=== PATIENT | male | born 1990 | race African-American/Black ===

== ENCOUNTER 2016-12-24 05:50 | Emergency (ER) | payer OTHER ==
[2016-12-24] MEDS ORDERED: LABETALOL IV ONE (06:43)
[2016-12-24] MEDS ORDERED: VANCOMYCIN 1 GM/NS 250 ML IV ONE (07:11)
[2016-12-24] MEDS ORDERED: NS IV SCH (07:15)
[2016-12-24] MEDS ORDERED: SOLU CORTEF IV SCH (07:15)
[2016-12-24] MEDS ORDERED: TAZIDIME 2 GM in NS 100 ML IV ONE (07:30)
[2016-12-24 09:47] VITALS: BP 156/107
--- NOTE | 2016-12-24 10:25 | ED EKG INTERP ---
EKG Interpretation - EKG Time of EKG reading by physician:: 06:03 EKG Read and Signed by:: Trevor Obando EKG Interpretation (*Must complete 3 of following elements*): Normal Rate: 87 Rhythm: NSR Attestation - Scribe Verification/Attestation Scribe:: Suzy Freedamn Acting as Scribe for:: Trevor Obando Scribe documention review:: This chart was documented by a scribe and accurately reflects the service the provider performed and the decisions made by the provider.
--- NOTE | 2016-12-24 11:42 | PROVIDER DOCUMENTATION ---
HPI-General Adult - General Source: patient - History of Present Illness -Gen Adult Nature of Presenting Problems: Pt is a 26 yom who came to the ED with a cc of a leaky peritoneal tube. Pt reports he was at dialysis and his peritoneal tube was leaking and he clamped it off and came to the ED. Location of Pain/Injury: reports: abdomen (peritoneal tube) Pain Radiation: reports: no radiation Quality of Pain: reports: none Onset/Duration: reports: unsure Timing: reports: still present Context/Activities at Onset: reports: none Modifying Factors: improves with: nothing Associated Symptoms: reports: denies symptoms Similar Symptoms Previously?: No Recently seen or treated by another doctor?: No - General Chief Complaint: General Adult Stated Complaint: dialysis port not working and leaking. Time Seen by Provider: 12/24/16 06:10 Allergies/Adverse Reactions: Patient Allergies Allergy/AdvReac Type Severity Reaction Status Date / Time povidone-iodine Allergy Mild RASH Verified 12/24/16 06:49 [From Betadine] latex Allergy Unknown Unknown Verified 12/24/16 06:49 phenylephrine Allergy Unknown Unknown Verified 12/24/16 06:49 naldycon Allergy Intermediate sleep Uncoded 12/24/16 06:49 Home Medications: Home Medication List Medication Instructions Recorded Confirmed Last Taken Type Labetalol HCl 200 mg PO BID 12/27/13 11/29/16 11/29/16 08:00 History Magnesium Oxide 400 mg PO DAILY 12/27/13 11/29/16 11/29/16 08:00 History Calcium Acetate 4 tab PO TID CC 06/03/14 11/29/16 11/29/16 08:00 History Acetaminophen [Tylenol] 325 mg PO PRN PRN 11/21/14 11/29/16 03/09/15 09:30 History Gentamicin 0.3% Oph Oint 1 each TOP DIRECTED 11/21/14 11/29/16 02/23/16 03: 30 History Melatonin/Pyridoxine HCl (B6) 5 mg SL QHS 11/21/14 11/29/16 11/28/16 21:00 History [Melatonin 5 mg Tablet] Sorbitol Solution [Sorbitol] 30 ml PO BID PRN 11/21/14 11/29/16 Unknown History Calcitriol 0.5 mcg PO DAILY 05/03/15 11/29/16 11/29/16 08:00 History Promethazine [Phenergan] 25 mg PO Q6H PRN PRN #20 tablet 05/03/15 11/29/16 Unknown Rx Amlodipine Besylate [Norvasc] 10 mg PO DAILY #30 tablet 09/02/15 11/29/16 21:00 Rx Clonazepam [Klonopin] 0.5 mg PO BID PRN PRN 09/02/15 11/29/16 11/29/16 08:00 History Omeprazole [Prilosec] 40 mg PO DAILY 09/02/15 11/29/16 11/29/16 08:00 History Ondansetron [Zofran Odt] 4 mg PO Q4-6H PRN PRN #12 09/29/15 11/29/16 Unknown Rx tab.rapdis Darbepoetin Luis Daniel in [place]ysorbat 60 mcg IJ DIRECTED PRN PRN 02/21/16 11/29/16 11/22/16 History [Aranesp] Guanfacine [Tenex] 1 mg PO QAM 02/21/16 11/29/16 11/29/16 08:00 History Mirtazapine [Remeron] 45 mg PO QHS 02/21/16 11/29/16 11/28/16 21:00 History Hydrocodone/Acetaminophen [[place] 1 each PO Q4H PRN #15 tablet 02/23/16 11/29/16 Unknown Rx 7.5-325 Tablet] Folic Acid/Vitamin B Comp W-C 1 each PO DAILY 11/28/16 11/29/16 11/28/16 21:00 History [Nephrocaps] Polyethylene Glycol 3350 [Miralax] 17 gm PO DAILY 11/28/16 11/29/16 Unknown History Hydrocodone/APAP 10 mg/325 mg 1 each PO Q4H PRN PRN #10 tablet 11/29/16 Unknown Rx [[place]-10] Review of Systems - Adult - REVIEW OF SYSTEMS - ADULT Constitutional: denies: fever, night sweats Eyes: reports: no symptoms reported Ears, Nose, Mouth & Throat: denies: sinus problem, mouth/dental pain Cardiovascular: reports: no symptoms reported Respiratory: denies: hemoptysis, shortness of breath Gastrointestinal: reports: other (peritoneal tube leaking). denies: diarrhea, nausea Genitourinary: reports: no symptoms reported Musculoskeletal: reports: no symptoms reported Integumentary: reports: no symptoms reported Neurological: reports: no symptoms reported Psychiatric: reports: no symptoms reported Endocrine: reports: no symptoms reported Hematologic/Lymphatic: reports: no symptoms reported Allergic/Immunologic: reports: no symptoms reported All Other Systems: Reviewed and Negative Past History - Adult - PAST MEDICAL HISTORY-ADULT Review of Records: reports: Old Records Reviewed, Nursing Assessment Review Major Childhood Illnesses: reports: denies history Cardiovascular: reports: HTN Respiratory: reports: denies history Gastrointestinal: reports: GERD Obstetrical/Gynecological: reports: denies history Genitourinary: reports: dialysis (peritoneal), ESRD, kidney disease, other ( right kidney transplant, 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) Musculoskeletal: reports: denies history Neurological: reports: denies history Endocrine/Immune: reports: denies history Other Conditions: reports: denies history - PRIOR SURGERIES/PROCEDURES Surgical/Procedure History: reports: hernia repair, other (R kidney transplant/ vas cath/kidney stent/peritoneal port) - IMMUNIZATION STATUS Childhood Immunizations: See Nurse Assessment Flu Vaccine: See Nurse Assessment - FAMILY HISTORY Family History: reviewed, not pertinent Physical Exam-General - PHYSICAL EXAM-ADULT Initial Vital Signs Reviewed: Yes - CONSTITUTIONAL General Appearance: alert, no apparent distress - EYES Eyes: PERRL/EOMI, pink conjunctivae, fundi clear, no AV nicking - HEAD, EARS, NOSE, MOUTH & THROAT HENMT: normocephalic/atraumatic, moist mucous membranes - NECK Neck: non-tender - RESPIRATORY Respiratory: chest non-tender - CARDIOVASCULAR Cardiovascular: normal peripheral pulses, regular rate, rhythm, no edema, no gallop, no JVD, no murmur - GASTROINTESTINAL (ABDOMEN) Abdominal Exam: normal bowel sounds, other (peritoneal tube leaking) - LYMPHATIC Lymphatic: no adenopathy - MUSCULOSKELETAL Back Exam: normal inspection, no CVA tenderness, no vertebral tenderness Extremity: normal range of motion - SKIN Integumentary: normal color, normal turgor, warm/dry - NEUROLOGIC Neurologic: grossly normal - PSYCHIATRIC Psych/Mental Status: normal mood/affect, normal thought content, normal thought process, oriented x 3 Progress - PLAN OF CARE/RESULTS Progress/Plan/Lab Results: Vital Signs - 24 hr 12/24/16 12/24/16 12/24/16 05:55 07:15 08:30 Temperature 97.4 F L Pulse Rate 98 H 91 H 83 Respiratory 18 13 10 L Rate Blood Pressure 178/124 176/108 171/94 O2 Sat by Pulse 100 99 95 Oximetry 12/24/16 12/24/16 12/24/16 09:00 09:29 09:46 Temperature Pulse Rate 68 75 79 Respiratory 19 16 15 Rate Blood Pressure 137/101 137/101 156/107 O2 Sat by Pulse 99 99 100 Oximetry Orders Category Date Time Status CefTAZIDIME [Tazidime] 2 gm Med 12/24/16 07:30 Discontinued 0.9% Sodium Chloride Inj [Ns] 100 ml IV NOW Hydrocortisone Sod Succinate [Solu-Cortef] 2,000 mg Med 12/24/16 07:15 Discontinued 0.9% Sodium Chloride Inj [Ns] 50 ml IV Q6H Labetalol Med 12/24/16 06:43 Discontinued 20 mg IV NOW ONE Vancomycin 1 gm/Ns 250 ml Med 12/24/16 07:11 Discontinued IV NOW - CONSULTS/PCP/HOSPITALIST Notification #1 *Consult/PCP/Hospitalist*: Dr. 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 Alvarez Departure - Departure Time of Disposition Order: 11:49 Certified Medical Emergency: Emergent - Departure DIAGNOSIS: Malfunction peritoneal dialysis catheter Disposition: HOME 01 Condition: Stable Additional Instructions: Go to Dr. Alvarez's office to meet Avani for evaluation and repair of peritoneal dialysis tube as instructed by Dr Alvarez ED Follow Up Instructions: You have been treated by a care provider in the Emergency Department. These instructions are being provided to you so you can have an understanding of how to care for yourself upon discharge. Upon discharge from the Emergency Department, you are responsible for making arrangements for follow-up care by a physician of your choice. Take all prescribed medications as directed. Return to the Emergency Department immediately for any new or worsening symptoms. You may call the Physician Referral phone number at [phone] to obtain a list of Physicians who are taking new patients. Referrals: Shadi Brewer MD [Primary Care Provider] - Instructions: Hemodialysis, [id number] Attestation - Scribe Verification/Attestation Scribe:: Suzy Freedman Acting as Scribe for:: Trevor Obando Scribe documention review:: This chart was documented by a scribe and accurately reflects the service the provider performed and the decisions made by the provider. Physician Attestation
--- NOTE | 2016-12-25 06:10 | EKG Report ---
Test Performed on : 12/24/2016 06:03:50 AM Test Reason : No Order in [employer] Blood Pressure : / mmHG Vent. Rate : 087 BPM Atrial Rate : 087 BPM P-R Int : 142 ms QRS Dur : 090 ms QT Int : 390 ms P-R-T Axes : 048 038 044 degrees QTc Int : 469 ms Normal sinus rhythm. Normal ECG When compared with ECG of 28-NOV-2016 14:17, No significant change was found Unconfirmed Result
== END 2016-12-24 11:30 | disposition home or self-care (01) ==
LOC: ED 05:50
DX: T85.611A Breakdown (mechanical) of intraperitoneal dialysis catheter, initial encounter (principal); K21.9 Gastro-esophageal reflux disease without esophagitis; I12.0 Hypertensive chronic kidney disease with stage 5 chronic kidney disease or end stage renal disease; N18.6 End stage renal disease; Z99.2 Dependence on renal dialysis; Z79.899 Other long term (current) drug therapy; Z94.0 Kidney transplant status; Z90.5 Acquired absence of kidney
CPT/HCPCS: 93005; J0713; J3370

== ENCOUNTER 2019-05-26 15:13 | Observation (INO) ==
[2019-05-26] MEDS ORDERED: LR 1,000 ML ONE ×2 (15:40→18:30)
[2019-05-26] MEDS ORDERED: FLAGYL 500 MG/NS 500 MG/100 ML IVPB IV ONE (16:00)
[2019-05-26] MEDS ORDERED: XYLOCAINE-MPF 2% ONE (16:13)
[2019-05-26] MEDS ORDERED: ROBINUL ONE (16:13)
[2019-05-26] MEDS ORDERED: DIPRIVAN 1% ONE (16:16)
[2019-05-26] MEDS ORDERED: FENTANYL ONE (16:16)
[2019-05-26] MEDS ORDERED: QUELICIN (DOSE) ONE (16:17)
[2019-05-26] MEDS ORDERED: ZEMURON ONE (16:17)
[2019-05-26] MEDS ORDERED: REGLAN ONE (16:23)
[2019-05-26] MEDS ORDERED: 1/2 NS 500 ML ONE (16:23)
[2019-05-26] MEDS ORDERED: PEPCID ONE (16:23)
[2019-05-26 16:34] LABS: BASO# 0.03 X1000 (0.0-0.2); BASO% 0.5 % (0.0-0.8); EOS# 0.18 X1000 (0.0-0.7); EOS% 3.1 % (0.0-10.0); HEMATOCRIT 30.9 % (42.0-52.0); HEMOGLOBIN 10.2 g/dL (14.0-18.0); LYMPH# 1.33 X1000 (1.2-3.4); LYMPH% 22.7 % (20.5-51.1); MCH 26.8 PG (27-31); MCV 81.3 FL (81-99); MONO# 0.39 X1000 (0.11-0.59); MONO% 6.6 % (1.7-9.3); NEUT# 3.94 X1000 (1.4-6.5); NEUT% 67.1 % (42.2-75.2); PLT 254 X1000 (130-400); WBC 5.87 X1000 (4.8-10.8)
[2019-05-26 17:01] LABS: POTASSIUM 4.3 mmol/L (3.5-5.1)
[2019-05-26 17:02] LABS: CALCIUM 8.4 mg/dL (8.8-10.2)
[2019-05-26] MEDS ORDERED: ZOFRAN ONE (17:04)
[2019-05-26] MEDS ORDERED: DECADRON ONE (17:05)
[2019-05-26] MEDS ORDERED: APRESOLINE ONE (17:06)
[2019-05-26] MEDS ORDERED: SODIUM CHLORIDE 0.9% 10 ML ONE (17:06)
[2019-05-26 17:12] LABS: CREATININE 22.6 mg/dL (0.7-1.2)
[2019-05-26] MEDS: DILAUDID ONE ×2 (18:00→18:03)
[2019-05-26] MEDS ORDERED: ARANESP SUBQ PRN (18:40)
[2019-05-26] MEDS ORDERED: TYLENOL PO PRN (18:40)
[2019-05-26] MEDS ORDERED: PHENERGAN PO PRN (18:40)
[2019-05-26] MEDS ORDERED: MIRALAX PO PRN (18:40)
[2019-05-26] MEDS ORDERED: ZOFRAN ODT PO PRN (18:40)
[2019-05-26] MEDS ORDERED: SORBITOL PO PRN (18:40)
[2019-05-26] MEDS ORDERED: KLONOPIN PO PRN (18:40)
--- NOTE | 2019-05-26 20:16 | OPERATIVE NOTE ---
PROCEDURE DATE: 05/26/2019 PROCEDURES: Incision and drainage furuncles of the face. SURGEON: Wilfredo Riggs MD. DIRECTOR OF PEDIATRIC REHABILITATION: BARBARA Nathan. PREOPERATIVE DIAGNOSIS: Hidradenitis with furuncles of the face. POSTOPERATIVE DIAGNOSIS: Hidradenitis with furuncles of the face. 29-year-old with known hidradenitis who has had some purulent drainage and a fluctuant area on the left side of his face and a small one on the right side of his face. He desires incision, drainage. He has been on p.o. antibiotics at home. DESCRIPTION OF PROCEDURE: Satisfactory general anesthesia was achieved. The cheeks were prepped and draped in a sterile fashion. We began on the left side which was the larger side. We incised into the fluctuant area. There was a lot of granulation tissue. Purulence had already drained out. We extended our incision to the extent of the fluctuant area. We irrigated. After satisfactory hemostasis we packed with iodoform gauze. We did the same on the right side. There was more sebaceous material on the right but it was also packed with iodoform gauze after incision and drainage. Sterile 4 x 4s, sterile Maryana and an Juan was used to wrap around his face and cheeks. He tolerated this satisfactorily, was sent to the recovery room in satisfactory condition. cc: Wilfredo Riggs MD
[2019-05-27] MEDS: FLAGYL 500 MG/NS 500 MG/100 ML IVPB IV SCH ×4 (00:54→21:35)
[2019-05-27] MEDS: PRILOSEC PO SCH (06:13)
[2019-05-27] MEDS: NORVASC PO SCH ×2 (07:14→21:36)
[2019-05-27] MEDS: REMERON PO SCH ×2 (07:14→21:36)
[2019-05-27] MEDS: MELATONIN PO SCH ×2 (07:14→21:36)
[2019-05-27] MEDS: TRANDATE PO SCH ×3 (07:15→21:36)
[2019-05-27] MEDS: TENEX PO SCH (10:55)
[2019-05-27] MEDS: NEPHROCAPS PO SCH (10:55)
[2019-05-27] MEDS: ROCALTROL PO SCH (10:55)
[2019-05-27] MEDS: PHOSLO PO SCH ×3 (10:55→17:06)
[2019-05-27] MEDS: PERIDEX MT SCH ×2 (10:55→21:37)
[2019-05-27] MEDS: MAG-OX PO SCH (10:55)
[2019-05-27] MEDS: NORCO-5 PO PRN ×3 (11:07→21:35)
[2019-05-27] MEDS ORDERED: DIPRIVAN 1% ONE ×2 (11:44→12:13)
[2019-05-27] MEDS ORDERED: XYLOCAINE-MPF 2% ONE (11:44)
--- NOTE | 2019-05-27 11:56 | NEPHROLOGY CONSULTATION ---
DATE: 05/27/2019 REASON FOR ADMISSION: Subcutaneous abscess with debridement and drainage, treatment per Dr. Riggs. REASON FOR CONSULTATION: End-stage renal disease with assistance with medical management. CONSULTING PHYSICIAN: Dr. Riggs. HISTORY OF PRESENT ILLNESS: Mr. Bedolla is a 29-year-old male who is known to our outpatient services for peritoneal dialysis daily at home. The patient has had trouble with a sebaceous cyst, carbuncles and folliculitis over the last several years, followed by Dr. Riggs. He presented to Dr. Riggs's office yesterday with symptoms including pain and swelling to his right and left neck. It was noted to have an enlargement of abscess of fast growth. Abscess location to the face, left jaw, also noted into the right jaw. The patient describes this as moderate and severely, worsening over the last week. He had recently finished a dose of clindamycin. The patient does have a history of hidradenitis and recurrent abscesses in the past. He currently denies chest pain. No increased work of breathing. No nausea, vomiting, no diarrhea. No fever or chills. Positive for pain in the upper jaw. Decreased appetite secondary to pain when chewing. PAST MEDICAL HISTORY: End-stage renal disease with peritoneal dialysis daily at home, anemia of chronic disease, anxiety, GERD, anal fistula, sebaceous cysts, carbuncle to face, folliculitis, hidradenitis, perineal abscess, hypertension and depression. He has also had inguinal hernia repair under surgery, now with I&D to right and left jaw as of 05/26/2019. FAMILY HISTORY: Positive for hypertension. Negative for end-stage renal disease. SOCIAL HISTORY: He lives with his mother. He is not . He has no children. He is a smoker, 1/2 pack per day. Drinks caffeine. Occasional alcohol. No illicit drug use. ALLERGIES: Listed as Betadine, latex, and now to Nifedecal causing severe cough and chest discomfort. HOME MEDICATIONS: Listed as clonazepam, guaifenesin, omeprazole, mirtazapine, amlodipine, Nephrocaps, labetalol, magnesium oxide, MiraLAX, calcitriol, losartan, ranitidine, Tums. REVIEW OF SYSTEMS: Review of systems x10 with pertinent positives listed above in the HPI. VITAL SIGNS: Most recent, temperature 98.1 degrees, blood pressure 148/94, heart rate 86, respirations are 16. He is on room air. Last recorded saturation is 100%. He has had 917 in, 500 mL out to void, though he was recently taken off peritoneal dialysis. LABORATORY DATA: Sodium of 140, potassium 4.3, chloride 94, CO2 30, BUN 41, creatinine 22.6, with a glucose of 93, anion gap of 16, calcium 8.4. White count 5.87, hemoglobin 10.2, hematocrit 30.9 with a platelet count of 254,000. PHYSICAL EXAMINATION: General: This is a 29-year-old male resting quietly in bed. He appears in no acute distress. Skin: Warm and dry with dressing to his bilateral right and left jaw. HEENT: Normocephalic, atraumatic. Conjunctiva is pale pink. He has HINA. Mucous membranes are dry. Neck: Supple with good movement. Unable to determine JVD. Cardiovascular: Regular rate and rhythm without murmur or gallop. Lungs: Clear to auscultation bilaterally. Equal excursion on room air. Abdomen: Soft, nontender, positive bowel sounds with a peritoneal dialysis catheter intact without redness or drainage. Genitourinary: Not inspected. Minimal void with dialysis assist. Extremities: Have no edema. No clubbing or cyanosis. Neurological: He is alert and oriented x3. ASSESSMENT AND PLAN: 1. Chronic kidney disease stage 5D. The patient was placed on the cycler last night for his peritoneal dialysis prescription. He is currently off with some residual fluid remaining. 2. Electrolytes, acid-base balance. These have been stable during his hospitalization. 3. Anemia. This is acceptable. 4. Status postoperative day #1 for incision and drainage of bilateral jaw carbuncle. This is followed by primary care team. The patient currently remains on renal dosed antibiotics. I would like to thank you for allowing us to follow with this patient. Dictated by FABIOLA Bonner for Joaquin Alvarez MD Face to face encounter, data reviewed, discussed with Poncho Joseph on 05/27/19. I agree with the above assessment and plan of care. cc: FABIOLA Bonner MD Robert C. Walker, MD [facility]
[2019-05-27] MEDS ORDERED: QUELICIN (DOSE) ONE (12:14)
--- NOTE | 2019-05-27 12:34 | NEPHROLOGY PROGRESS NOTE ---
DATE: 05/27/2019 TREATMENT NOTE: TIME AND DATE SEEN: 05/27/2019 at 07:35. SUBJECTIVE: Mr. Bedolla has been taken off his peritoneal dialysis cycler for the night. He has peritoneal dialysis fluid intact, tolerated procedure well. OBJECTIVE: His vital signs are stable. No changes to his physical exam. PLAN: Chronic kidney disease stage 5D. The patient was on his peritoneal dialysis cycler during the night per his routine scheduled plans. If patient is discharged, he is to continue his routine prescription at home. If he remains in the hospital during the night, we will place him back on the cycler per his routine prescription this evening. I would like to thank you for allowing us to follow with this patient. Dictated by FABIOLA Bonner for Joaquin Alvarez MD Face to face encounter, data reviewed, discussed with Poncho Joseph on 05/27/19. I agree with the above assessment and plan of care. cc: FABIOLA Bonner MD Robert C. Walker, MD [facility]TD[facility]
[2019-05-27] MEDS: DILAUDID ONE ×2 (13:02→13:05)
--- NOTE | 2019-05-27 14:37 | OPERATIVE NOTE ---
PROCEDURE DATE: 05/27/2019 PROCEDURE: Exploration of left cheek wound with cauterization of bleeding vessels. SURGEON: Wilfredo Riggs MD. POTATO CHIP FRIER: Abdirahman Sellers. PREOPERATIVE DIAGNOSIS: Bleeding left cheek wound. POSTOPERATIVE DIAGNOSIS: Bleeding left cheek wound. INDICATIONS: This is a 29-year-old who underwent I and D of hidradenitis of the face the night prior. This morning the packing was removed and bleeding began from the recesses of the wound. We attempted pressure control but this would not maintain adequate hemostasis so he is brought down for exploration and definitive treatment of the bleeding wound. DESCRIPTION OF PROCEDURE: Satisfactory general endotracheal anesthesia was achieved. The left side of the face was prepped and draped in a sterile fashion. We inspected the wound. Bleeding was coming from medial recess of the wound. We extended our incision slightly and then cauterized the very base of the wound and that stopped the bleeding completely. We irrigated out the wound copiously. I then placed a deep 3-0 nylon simple stitch that would include the area of bleeding and added an additional stitch as well to help maintain hemostasis. We placed some intermittent skin stitches along the course of the wound in order to help reapproximate the skin partially. A sterile dressing was applied. Gentle pressure was applied. He tolerated it well. He was sent to the recovery room in satisfactory condition. cc: Wilfredo Riggs MD
--- NOTE | 2019-05-27 17:50 | GENERAL SURGERY PROGRESS NOTE ---
DATE: 05/27/2019 SUBJECTIVE: Debra said no further bleeding after cauterization of the bleeding point of his cheek. So, we will keep internal in the morning known IV antibiotics and discharge him tomorrow. cc: Wilfredo Riggs MD
[2019-05-27] MEDS: LR 1,000 ML IV SCH ×2 (19:42→21:35)
[2019-05-28] MEDS: FLAGYL 500 MG/NS 500 MG/100 ML IVPB IV SCH (06:34)
[2019-05-28] MEDS: PRILOSEC PO SCH (06:34)
[2019-05-28] MEDS: ROCALTROL PO SCH (08:49)
[2019-05-28] MEDS: TENEX PO SCH (08:49)
[2019-05-28] MEDS: TRANDATE PO SCH (08:50)
[2019-05-28] MEDS: PERIDEX MT SCH (08:50)
[2019-05-28] MEDS: MAG-OX PO SCH (08:50)
[2019-05-28] MEDS: PHOSLO PO SCH (08:50)
[2019-05-28] MEDS: NEPHROCAPS PO SCH (08:51)
--- NOTE | 2019-05-28 09:02 | NEPHROLOGY PROGRESS NOTE ---
DATE: 05/28/2019 TIME SEEN: 0700. SUBJECTIVE: Mr. Bedolla is resting quietly in bed. Head of the bed is slightly elevated. He states that he rested yesterday evening. LABORATORY DATA: Labs are currently pending this a.m. Previous potassium 4.3. Previous hemoglobin 10.2. OBJECTIVE: Most Recent Vital Signs: Temperature 97.4 degrees, blood pressure 156/103, heart rate 87, respirations 18. He is on 2 L nasal cannula. Last recorded saturation 99%. He has had 434 in, 1135 out. General: This is a 29-year-old male. He is resting quietly in bed. Skin: Warm and dry. Continues with dressing to his neck bilaterally. HEENT: Normocephalic, atraumatic. Conjunctivae pale, pink. He has HINA. Mucous membranes are dry. Neck: Supple. Unable to determine JVD due to dressing. Cardiovascular: Regular rate and rhythm. He is without murmur or gallop. Lungs: Clear to auscultation bilaterally. Equal excursion on O2. Abdomen: Soft, nontender. Positive bowel sounds. Peritoneal dialysis catheter remains intact. He is currently attached to his dialysis cycler from his nightly treatment, tolerating well. No tenderness present to exit site, without redness or drainage. Genitourinary: Not inspected. Minimal void with dialysis assist. Extremities: No edema. No clubbing or cyanosis. Neurological: Alert and oriented x3. Integumentary: Dressing remains intact to bilateral jaw and neck line. ASSESSMENT AND PLAN: 1. Chronic kidney disease stage 5D. The patient has had his routine peritoneal dialysis per the cycler yesterday evening. It is still intact, though it is complete, waiting for him to be disconnected per the dialysis nurses. Tolerated this well. 2. Electrolytes and acid-base balance. These are currently pending. Stable during this hospitalization. 3. Anemia. This has been acceptable, still pending. Previous hemoglobin of 10.2. 4. Postoperative day #2 for incision and drainage with bilateral jaw wounds. The patient was taken back to surgery yesterday with bleeding to the right, which was cauterized per Dr. Riggs. He is on renal dosed antibiotics. No indication to change. I would like to thank you for allowing us to follow with this patient. Dictated by FABIOLA Bonner for Joaquin Alvarez MD Face to face encounter, data reviewed, discussed with Poncho Joseph on 05/28/19. I agree with the above assessment and plan of care. cc: FABIOLA Bonner MD Robert C. Walker, MD [facility]ITALMaggie
[2019-05-28 11:32] VITALS: BP 160/114
--- NOTE | 2019-05-28 13:07 | GENERAL SURGERY PROGRESS NOTE ---
DATE: 05/28/2019 SUBJECTIVE: Jeff's doing well he has had no further bleeding. His bandage is removed. Band-Aids were applied. He will clean his wound with peroxide at home. He will continue to take Cleocin that he already has at home. DISPOSITION: He will return to see me in the office in 6 days. cc: Wilfredo Riggs MD
== END 2019-05-28 12:25 | disposition home or self-care (01) ==
LOC: OR 15:13 → 4N 15:13
PROVIDERS: ADMIT Surgery; ATTEND Surgery